=== PATIENT | female | born 2000 | race American Indian/Alaskan Native ===

== ENCOUNTER 2021-02-13 20:06 | Inpatient (IN) | payer MEDICAID ==
[2021-02-13] MEDS ORDERED: TERBUTALINE 1 MG/1 ML INJ SUB-Q PRN (20:42)
[2021-02-13] MEDS ORDERED: miSOPROStol 200 MCG TAB PR PRN (20:42)
[2021-02-13 21:38] LABS: Hematocrit 28.2 % (30.3-42.9); Mean Corpuscular HGB Conc 36 % (30-34); Mean Corpuscular Volume 84 fl (79-97); Platelet Count 226 K/mm3 (140-440); Red Blood Count 3.35 M/mm3 (3.65-5.03); Red Cell Distribution Width 15.4 % (13.2-15.2)
--- NOTE | 2021-02-13 21:55 | History and Physical Report ---
History of Present Illness Date of examination: 02/13/21 Date of admission: 02/13/21 20:06 Chief complaint: I am here to be induced History of present illness: Patient is a 21-year-old 1 para 0 who presents for induction of labor at 40 weeks and 3 days secondary to obesity and postdates. She has had an uncomplicated course. She is GBS positive Past History Past Medical History: no pertinent history Past Surgical History: no surgical history Family/Genetic History: none Social history: single - Obstetrical History Expected Date of Delivery: 02/09/21 Actual Gestation: 40 Week(s) 5 Day(s) : 1 Para: 0 Number of Living Children: 0 Medications and Allergies Allergies Allergy/AdvReac Type Severity Reaction Status Date / Time No Known Allergies Allergy Unverified 02/13/21 20:33 Active Meds: Active Medications Butorphanol Tartrate (Butorphanol 2 Mg/1 Ml Inj) 2 mg IV Q2H PRN PRN Reason: Pain , Severe (7-10) Carboprost Tromethamine (Carboprost Tromethamine 250 Mcg/1 Ml Inj) 250 mcg IM ONCE PRN PRN Reason: Uterine Bleeding Ephedrine Sulfate (Ephedrine Sulfate 50 Mg/1 Ml Inj) 10 mg IV Q2M PRN PRN Reason: Hypotension Fentanyl (Fentanyl 100 Mcg/2 Ml Inj) 100 mcg IV Q2H PRN PRN Reason: Pain, Moderate (4-6) Oxytocin/Sodium Chloride (Pitocin/Ns 30 Unit/500ml) 30 units in 500 mls @ 2 mls/hr IV TITR TAZ; Protocol Lactated Ringer's (Lactated Ringers) 1,000 mls @ 125 mls/hr IV DIRECT TAZ Oxytocin/Sodium Chloride (Pitocin/Ns 30 Unit/500ml) 30 units in 500 mls @ 40 mls/hr IV TITR TAZ; Protocol Ampicillin Sodium (Ampicillin/Ns 2 Gm/100 Ml) 2 gm in 100 mls @ 100 mls/hr IV ONCE ONE; Protocol Stop: 02/13/21 22:59 Lidocaine (Lidocaine (2%) 20 Mg/1 Ml Vial 20 Ml Mdv) 20 ml INFILTRATI ONCE ONE Stop: 02/13/21 22:01 Loperamide HCl (Loperamide 2 Mg Cap) 2 mg PO ONCE PRN PRN Reason: give with Hemabate Methylergonovine Maleate (Methylergonovine Maleate 0.2 Mg/Ml Vial) 0.2 mg IM ONCE PRN PRN Reason: Uterine Bleeding Mineral Oil (Mineral Oil 30 Ml Oral Liqd) 30 ml PO QHS PRN PRN Reason: Constipation Misoprostol (Misoprostol 200 Mcg Tab) 800 mcg DC ONCE PRN PRN Reason: Uterine Bleeding Misoprostol (Misoprostol 25 Mcg Tab) 25 mcg VG Q4H TAZ Oxytocin (Oxytocin 10 Unit/1 Ml Inj) 10 unit IM ONCE PRN PRN Reason: Uterine Bleeding Terbutaline Sulfate (Terbutaline 1 Mg/1 Ml Inj) 0.25 mg SUB-Q ONCE PRN PRN Reason: Hyperstimulation/Hypertonicity Review of Systems All systems: negative Constitutional: weight gain Eyes: deferred Breasts: deferred Genitourinary: pelvic pain, contractions - Physical Exam Breasts: Positive: deferred Cardiovascular: Regular rate, Normal S1, Normal S2 Lungs: Positive: Clear to auscultation, Normal air movement Abdomen: Positive: normal appearance, soft, normal bowel sounds. Negative: distention, tenderness Genitourinary (Female): Positive: normal external genitalia, normal perenium Vulva: both: normal Vagina: Positive: normal moisture. Negative: discharge Cervix: Negative: lesion, discharge Uterus: Positive: normal size, normal contour Adnexa: both: normal Anus/Rectum: Positive: normal perianal skin, heme negative. Negative: rectal mass, hemorrhoids Extremities: Deep Tendon Reflex Grade: Normal +2 - Obstetrical FHR: auscultation normal Cervical Dilatation: 1.5 Uterine Contraction Pattern: Absent Results Result Diagrams: 02/13/21 21:21 Abnormal lab results 02/13/21 Range/Units 21:21 RBC 3.35 L (3.65-5.03) M/mm3 Hgb 10.0 L (10.1-14.3) gm/dl Hct 28.2 L (30.3-42.9) % MCHC 36 H (30-34) % RDW 15.4 H (13.2-15.2) % All other labs normal. Assessment and Plan IUP at 40-4/7 weeks here for induction of labor secondary to postdates and obesity. Will admit for same. Begin Cytotec. AROM when able. Anticipate .
[2021-02-13] MEDS ORDERED: LOPERAMIDE 2 MG CAP PO PRN (22:00)
[2021-02-13] MEDS ORDERED: BUTORPHANOL 2 MG/1 ML INJ IV PRN (22:00)
[2021-02-13] MEDS ORDERED: MINERAL OIL 30 ML ORAL LIQD PO PRN (22:00)
[2021-02-13] MEDS ORDERED: LIDOCAINE (2%) 20 MG/1 ML VIAL 20 ML MDV INFILTRATI ONE (22:00)
[2021-02-13] MEDS ORDERED: AMPICILLIN/NS 2 GM/100 ML 2 GM/100 ML BAG IV ONE (22:00)
[2021-02-13] MEDS ORDERED: METHYLERGONOVINE MALEATE 0.2 MG/ML VIAL IM PRN (22:00)
[2021-02-13] MEDS ORDERED: OXYTOCIN 10 UNIT/1 ML INJ IM PRN (22:00)
[2021-02-13] MEDS ORDERED: miSOPROStol 25 MCG TAB VG SCH (22:00)
[2021-02-13] MEDS ORDERED: OXYTOCIN DRIP 30 UNITS/500 ML BAG IV SCH ×2 (22:00)
[2021-02-13] MEDS ORDERED: miSOPROStol 25 MCG TAB VG ONE (22:00)
[2021-02-13] MEDS ORDERED: CARBOPROST TROMETHAMINE 250 MCG/1 ML INJ IM PRN (22:00)
[2021-02-13] MEDS ORDERED: ePHEDrine SULFATE 50 MG/1 ML INJ IV PRN (22:00)
[2021-02-13] MEDS: LACTATED RINGERS 1,000 ML IV SCH (23:17)
[2021-02-14] MEDS: fentaNYL 100 MCG/2 ML INJ IV PRN ×2 (05:56→08:30)
[2021-02-14] MEDS ORDERED: ONDANSETRON 4 MG/2 ML INJ ONE (08:08)
--- NOTE | 2021-02-14 10:31 | Anesthesia Consultation ---
Anesthesia Consult and Med Hx Date of service: 02/14/21 - Airway Anesthetic Teeth Evaluation: Poor ROM Head & Neck: Adequate Mental/Hyoid Distance: Adequate Mallampati Class: Class II Intubation Access Assessment: Good - Pulmonary Exam CTA: Yes - Cardiac Exam Cardiac Exam: RRR - Pre-Operative Health Status ASA Pre-Surgery Classification: ASA3 Proposed Anesthetic Plan: Epidural - Pulmonary Hx Smoking: No Hx Asthma: No Hx Respiratory Symptoms: No SOB: No COPD: No Home Oxygen Therapy: No Hx Pneumonia: No Hx Sleep Apnea: No - Cardiovascular System Hx Hypertension: No Hx Coronary Artery Disease: No Hx Heart Attack/AMI: No Hx Angina: No Hx Percutaneous Transluminal Coronary Angioplasty (PTCA): No Hx Cardia Arrhythmia: No Hx Pacemaker: No Hx Internal Defibrillator: No Hx Valvular Heart Disease: No Hx Heart Murmur: No Hx Peripheral Vascular Disease: No - Central Nervous System Hx Neuromuscular Disorder: No Hx Seizures: No CVA: No Hx Back Pain: Yes Hx Psychiatric Problems: No - Gastrointestinal Hx Ulcer: No Hx Gastroesophageal Reflux Disease: No - Endocrine Hx Renal Disease: No Hx End Stage Renal Disease: No Hx Cirrhosis: No Hx Liver Disease: No Hx Insulin Dependent Diabetes: No Hx Non-Insulin Dependent Diabetes: No Hx Thyroid Disease: No Hx Hypothyroidism: No Hx Hyperthyroidism: No - Hematic Hx Anemia: No Hx Sickle Cell Disease: No - Other Systems Hx Alcohol Use: No Hx Substance Use: No Hx Cancer: No Hx Obesity: Yes
[2021-02-14] MEDS ORDERED: ePHEDrine SULFATE 50 MG/1 ML INJ IV PRN (11:00)
[2021-02-14] MEDS ORDERED: NALOXONE 2 MG/2 ML INJ IV PRN (11:00)
[2021-02-14] MEDS: fentaNYL-BUPIV 2 MCG/ML-0.125% 200 MCG/100 ML BAG EPIDURAL SCH ×2 (11:58→20:05)
[2021-02-14] MEDS: AMPICILLIN/NS 1 GM/50 ML 1 GM/50 ML BAG IV SCH ×2 (12:05→22:04)
--- NOTE | 2021-02-14 12:56 | Progress Note ---
Labor Epidural - Labor Epidural Start Time: 11:28 Stop Time: 11:43 Performed by:: NAOMI WHITE Procedure: Patient is requesting a laboring epidural for laboring pain. Patient IDed, H&P reviewed, all questions and concerns were answered, and consent was signed. Timeout was performed at bedside. Patient in sitting position. Sterile prep and drape was performed. [3] ml of 1% lidocaine skin wheal at L[3]- L [4]. 18- gauge StayNTouch epidural needle was advanced to loss of resistance with saline technique 9cm. Negative CSF negative blood. Epidural catheter advanced to [12] centimeters. [NEGATIVE] Aspiration [NEGATIVE] test dose. Sterile dressing applied. Patient tolerated procedure.
[2021-02-15] MEDS: LACTATED RINGERS 1,000 ML IV SCH ×3 (01:23→15:40)
[2021-02-15] MEDS: fentaNYL-BUPIV 2 MCG/ML-0.125% 200 MCG/100 ML BAG EPIDURAL SCH (02:26)
[2021-02-15] MEDS: AMPICILLIN/NS 1 GM/50 ML 1 GM/50 ML BAG IV SCH ×2 (02:35→07:34)
--- NOTE | 2021-02-15 10:30 | Procedure Note ---
OB Delivery Note - Delivery Date of Delivery: 02/15/21 Surgeon: GARETT BRANDT Estimated blood loss: 200cc - Vaginal Delivery presentation: vertex Delivery position: OA Intrapartum events: none Delivery induction: cervidil Delivery augmentation: rupture of membranes, pitocin Delivery monitor: external FHT, external uterine Route of delivery: Delivery placenta: spontaneous Delivery cord: 3 umbilical vessels Episiotomy: none Delivery laceration: 2nd degree Delivery repair: vicryl Anesthesia: epidural Delivery comments: Viable male delivered over intact perineum. Infant had spontaneous cry and was placed on maternal abdomen. Cord was clamped and cut when finished pulsating. Weight 7 pounds 14 ounces. Apgars 8/9. Placenta was delivered spontaneously and intact with three-vessel cord. Patient had a second degree laceration that was repaired with 2-0 Vicryl. Excellent hemostasis. Patient tolerated procedure well. - Infant A at 1 minute: 8 at 5 minutes: 9 Gender: Male (7 pounds 14 ounces)
[2021-02-15] MEDS ORDERED: NalbUPHINE 10 MG/1 ML INJ IV PRN (12:30)
[2021-02-15] MEDS ORDERED: fentaNYL 100 MCG/2 ML INJ IV PRN (13:00)
[2021-02-15] MEDS: ACETAMINOPHEN 325 MG TAB PO PRN (13:47)
[2021-02-15 13:51] LABS: Hematocrit 28.3 % (30.3-42.9); Hemoglobin 9.8 gm/dl (10.1-14.3); Mean Corpuscular HGB Conc 35 % (30-34); Mean Corpuscular Volume 84 fl (79-97); Platelet Count 240 K/mm3 (140-440); Red Blood Count 3.37 M/mm3 (3.65-5.03); Red Cell Distribution Width 15.7 % (13.2-15.2)
[2021-02-15 14:06] LABS: Amorphous Crystals,Urine 1+; Bacteria,Urine 4+ /HPF (Negative); Bilirubin,Urine NEG (Negative); Blood,Urine LG (Negative); Color,Urine Yellow (Yellow); Mucus,Urine FEW /HPF; Urobilinogen,Urine < 2.0 mg/dL (<2.0)
[2021-02-15 14:12] LABS: Alanine Aminotransferase 20 units/L (7-56); Albumin 3.1 g/dL (3.9-5); BUN/Creatinine Ratio 15; Blood Urea Nitrogen 12 mg/dL (7-17); Calcium 8.8 mg/dL (8.4-10.2); Hemolysis Index 5
[2021-02-15] MEDS ORDERED: MAGNESIUM SULFATE 4 GM/100 ML BAG IV ONE (16:00)
[2021-02-15] MEDS ORDERED: MAGNESIUM SULFATE 40GM/1000ML 40 GM/1,000 ML BAG IV SCH (16:00)
[2021-02-15] MEDS ORDERED: MINERAL OIL 30 ML ORAL LIQD PO PRN (22:00)
--- NOTE | 2021-02-15 22:32 | Post Anesthesia Evaluation ---
- Post Anesthesia Evaluation Patient Participated: Yes Airway Patent: Yes Stable Respiratory Function: Yes Nausea/Vomiting: No Temp > 96.8F: Yes Pain Manageable: Yes Adequeate Hydration: Yes Anesthesia Complications: No Block Receding Appropriately: Yes Patient on Ventilator: No
[2021-02-15] MEDS ORDERED: WITCH HAZEL/ GLYCERIN PAD TP PRN (23:06)
[2021-02-15] MEDS ORDERED: MAGNESIUM HYDROXIDE (MOM) ORAL LIQD UDC PO PRN (23:06)
[2021-02-15] MEDS ORDERED: diphenhydrAMINE 25 MG CAP PO PRN (23:06)
[2021-02-15] MEDS ORDERED: LANOLIN/ZINC/DIMETHICONE (LANSINOH) 7 GM TP PRN (23:06)
[2021-02-15] MEDS ORDERED: PROMETHAZINE 25 MG TAB PO PRN (23:06)
[2021-02-15] MEDS ORDERED: ONDANSETRON 4 MG/2 ML INJ IV PRN (23:06)
[2021-02-15] MEDS ORDERED: HYDROcodone/ACETAMINOPHEN 5-325 MG TAB PO PRN (23:06)
[2021-02-15] MEDS ORDERED: PROMETHAZINE 25 MG RECT SUPP PR PRN (23:06)
[2021-02-15 23:54] LABS: Hematocrit 26.8 % (30.3-42.9); Hemoglobin 9.2 gm/dl (10.1-14.3)
[2021-02-16] MEDS: LACTATED RINGERS 1,000 ML IV SCH (06:58)
[2021-02-16] MEDS ORDERED: PRENATAL VIT27-FE FUMARATE-FOLIC ACID VIT TAB PO SCH (10:00)
--- NOTE | 2021-02-16 13:54 | Progress Note ---
Assessment and Plan - Patient Problems (1) Status post normal vaginal delivery Current Visit: Yes Status: Acute Plan to address problem: Continue routine PP orders Continue Magnesium drip as ordered Continue to monitor B/Ps Transfer to M/B after Magnesium complete Anticipate d/c in 24-48 hrs (2) Anemia Current Visit: Yes Status: Acute Qualifiers: Anemia type: iron deficiency Plan to address problem: Asymptomatic Increase iron rich foods into diet Continue daily oral iron supplementation as ordered Subjective - Subjective Date of service: 02/16/21 Principal diagnosis: S/P ; PPD#1; PIH Interval history: Patient is a 21-year-old 1 para 0 who presents for induction of labor at 40 weeks and 3 days secondary to obesity and postdates. She has had an uncomplicated course. She is GBS positive. Delivered viable male infant. Magniesum drip initiated. Patient reports: appetite normal, voiding normally, pain well controlled, flatus, ambulating normally : doing well, bottle feeding Objective - Vital Signs Latest vital signs: Vital Signs Temp Pulse Resp BP Pulse Ox Pulse Ox 02/16/21 13:48 91 H 99 02/16/21 13:43 82 100 02/16/21 13:38 102 H 99 02/16/21 13:33 98 H 99 02/16/21 13:28 91 H 99 02/16/21 13:23 93 H 99 02/16/21 13:18 107 H 99 02/16/21 13:15 90 130/61 02/16/21 13:13 89 84 02/16/21 13:10 33 L 84 02/16/21 12:59 83 99 02/16/21 12:54 87 98 02/16/21 12:49 89 99 02/16/21 12:44 91 H 99 02/16/21 12:39 98 H 98 02/16/21 12:34 93 H 99 02/16/21 12:29 83 98 02/16/21 12:24 85 98 02/16/21 12:19 85 98 02/16/21 12:14 91 H 98 02/16/21 12:09 93 H 98 02/16/21 12:04 95 H 98 02/16/21 12:02 91 H 94 02/16/21 12:00 98.2 F 18 98 02/16/21 11:59 96 H 97 02/16/21 11:54 92 H 98 02/16/21 11:49 106 H 97 02/16/21 11:44 103 H 99 02/16/21 11:39 58 L 89 02/16/21 11:18 96 H 97 02/16/21 11:13 97 H 97 02/16/21 11:08 95 H 97 02/16/21 11:03 97 H 97 02/16/21 10:58 96 H 97 02/16/21 10:53 96 H 98 02/16/21 10:48 97 H 98 02/16/21 10:43 94 H 97 02/16/21 10:38 94 H 98 02/16/21 10:33 104 H 97 02/16/21 10:28 95 H 97 02/16/21 10:23 98 H 97 02/16/21 10:18 107 H 99 02/16/21 10:13 94 H 97 02/16/21 10:08 94 H 97 02/16/21 10:03 108 H 98 02/16/21 10:00 98 02/16/21 09:58 101 H 94 02/16/21 09:53 103 H 97 02/16/21 09:50 93 H 91 02/16/21 09:48 99 H 97 02/16/21 09:43 96 H 98 02/16/21 09:38 103 H 98 02/16/21 09:33 108 H 98 02/16/21 09:22 100 H 99 02/16/21 09:17 94 H 99 02/16/21 09:12 102 H 99 02/16/21 09:07 90 99 02/16/21 09:02 94 H 99 02/16/21 08:57 101 H 99 02/16/21 08:52 93 H 99 02/16/21 08:47 88 98 02/16/21 08:42 93 H 98 02/16/21 08:37 98 H 99 02/16/21 08:32 92 H 99 02/16/21 08:27 108 H 99 02/16/21 08:22 118 H 98 02/16/21 08:17 93 H 99 02/16/21 08:12 91 H 99 02/16/21 08:07 97 H 99 02/16/21 08:02 90 99 02/16/21 07:57 94 H 99 02/16/21 07:52 103 H 99 02/16/21 07:47 92 H 98 02/16/21 07:42 103 H 98 02/16/21 07:27 100 100 02/16/21 07:24 98.1 F 18 02/16/21 07:02 91 H 132/76 100 02/16/21 06:57 102 H 99 02/16/21 06:53 101 H 140/82 02/16/21 06:52 107 H 99 02/16/21 06:47 95 H 98 02/16/21 06:42 106 H 97 02/16/21 06:37 96 H 98 02/16/21 06:32 95 H 98 02/16/21 06:27 97 H 98 02/16/21 06:22 95 H 98 02/16/21 06:17 95 H 98 02/16/21 06:12 93 H 98 02/16/21 06:07 94 H 98 02/16/21 06:02 94 H 98 02/16/21 05:57 95 H 99 02/16/21 05:54 92 H 123/67 02/16/21 05:52 97 H 98 02/16/21 05:47 97 H 98 02/16/21 05:42 96 H 98 02/16/21 05:37 92 H 99 02/16/21 05:32 95 H 99 02/16/21 05:27 93 H 99 02/16/21 05:22 103 H 98 02/16/21 05:17 103 H 99 02/16/21 05:12 116 H 98 02/16/21 05:07 118 H 98 02/16/21 05:02 112 H 98 02/16/21 05:00 113 H 93 02/16/21 04:57 102 H 98 02/16/21 04:52 100 H 98 02/16/21 04:47 103 H 98 02/16/21 04:42 102 H 98 02/16/21 04:37 102 H 98 02/16/21 04:32 102 H 98 02/16/21 04:27 103 H 98 02/16/21 04:22 102 H 98 02/16/21 04:17 99 H 98 02/16/21 04:12 102 H 98 02/16/21 04:07 98 H 99 02/16/21 04:04 99 H 137/74 02/16/21 04:02 101 H 98 02/16/21 03:57 99 H 98 02/16/21 03:52 103 H 99 02/16/21 03:47 105 H 99 02/16/21 03:42 119 H 97 02/16/21 03:41 62 82 L 02/16/21 03:32 125 H 76 L 02/16/21 03:30 121 H 91 02/16/21 03:27 111 H 97 02/16/21 03:22 105 H 99 02/16/21 03:17 106 H 99 02/16/21 03:12 105 H 99 02/16/21 03:07 105 H 99 02/16/21 03:02 102 H 99 02/16/21 02:57 107 H 99 02/16/21 02:52 104 H 100 02/16/21 02:47 104 H 99 02/16/21 02:44 98.2 F 17 02/16/21 02:42 102 H 100 02/16/21 02:41 106 H 124/72 02/16/21 02:37 111 H 99 02/16/21 02:32 107 H 98 02/16/21 02:27 107 H 99 02/16/21 02:22 107 H 99 02/16/21 02:17 104 H 99 02/16/21 02:12 103 H 99 02/16/21 02:07 102 H 98 02/16/21 02:02 103 H 99 02/16/21 01:57 97 H 100 02/16/21 01:52 104 H 100 02/16/21 01:47 119 H 99 02/16/21 01:42 114 H 100 02/16/21 01:39 87 80 L 02/16/21 01:37 99 H 100 02/16/21 01:32 103 H 100 02/16/21 01:27 110 H 100 02/16/21 01:22 119 H 99 02/16/21 01:21 64 81 L 02/16/21 01:17 108 H 100 02/16/21 01:12 113 H 99 02/16/21 01:10 105 H 131/63 02/16/21 01:07 108 H 100 02/16/21 01:02 103 H 100 02/16/21 00:57 108 H 100 02/16/21 00:52 129 H 99 02/16/21 00:49 81 L 02/16/21 00:40 72 79 L 02/16/21 00:35 102 H 100 02/16/21 00:30 101 H 100 02/16/21 00:25 108 H 99 02/16/21 00:20 104 H 100 02/16/21 00:15 96 H 100 02/16/21 00:10 112 H 100 02/16/21 00:05 121 H 100 02/15/21 23:54 99 H 100 02/15/21 23:49 105 H 100 02/15/21 23:44 105 H 100 02/15/21 23:40 102 H 135/63 02/15/21 23:39 103 H 100 02/15/21 23:38 98.3 F 02/15/21 23:34 101 H 100 02/15/21 23:29 108 H 98 02/15/21 23:24 108 H 100 02/15/21 23:19 104 H 100 02/15/21 23:14 99 H 100 02/15/21 23:09 102 H 100 02/15/21 23:04 106 H 100 02/15/21 22:59 103 H 99 02/15/21 22:54 124 H 100 02/15/21 22:49 85 87 02/15/21 22:40 105 H 99 02/15/21 22:35 103 H 99 02/15/21 22:30 109 H 99 02/15/21 22:16 99 F 17 02/15/21 22:15 109 H 100 02/15/21 22:10 99 H 100 02/15/21 22:05 103 H 100 02/15/21 22:00 101 H 100 02/15/21 21:55 112 H 100 02/15/21 21:50 98 H 100 02/15/21 21:45 97 H 100 02/15/21 21:40 105 H 100 02/15/21 21:35 105 H 100 02/15/21 21:32 102 H 136/72 02/15/21 21:30 104 H 100 02/15/21 21:25 101 H 100 02/15/21 21:20 122 H 99 02/15/21 21:07 120 H 100 02/15/21 21:02 108 H 100 02/15/21 20:57 98 H 100 02/15/21 20:52 99 H 100 02/15/21 20:47 96 H 100 02/15/21 20:42 108 H 100 02/15/21 20:37 93 H 100 02/15/21 20:36 94 H 137/64 02/15/21 20:32 97 H 100 02/15/21 20:27 99 H 100 02/15/21 20:22 106 H 99 02/15/21 20:17 70 97 02/15/21 20:07 109 H 100 02/15/21 20:02 109 H 100 02/15/21 19:57 106 H 100 02/15/21 19:52 103 H 99 02/15/21 19:47 100 H 100 02/15/21 19:42 96 H 100 02/15/21 19:37 91 H 100 02/15/21 19:32 99 H 138/73 100 02/15/21 19:27 102 H 100 02/15/21 19:22 98.3 F 95 H 100 H 100 02/15/21 19:19 100 02/15/21 19:17 98 H 134/68 100 02/15/21 19:12 92 H 100 02/15/21 19:07 123 H 100 02/15/21 18:58 98.7 F 114 H 16 100 02/15/21 18:56 92 H 100 02/15/21 18:51 112 H 99 02/15/21 18:46 96 H 100 02/15/21 18:41 97 H 100 02/15/21 18:36 95 H 100 02/15/21 18:32 98 H 132/64 02/15/21 18:31 88 100 02/15/21 18:26 96 H 100 02/15/21 18:21 99 H 100 02/15/21 18:16 108 H 100 02/15/21 18:11 114 H 100 02/15/21 18:06 102 H 100 02/15/21 18:01 97 H 100 02/15/21 17:56 102 H 100 02/15/21 17:55 99.4 F 16 98 02/15/21 17:51 99 H 100 02/15/21 17:46 103 H 100 02/15/21 17:41 102 H 100 02/15/21 17:36 98 H 100 02/15/21 17:31 106 H 100 02/15/21 17:09 94 H 156/79 02/15/21 16:59 99 H 155/74 02/15/21 16:55 99.2 F 100 H 16 100 02/15/21 16:49 88 150/72 02/15/21 16:39 101 H 146/74 02/15/21 16:29 96 H 144/64 02/15/21 16:19 95 H 140/69 02/15/21 16:09 97 H 136/69 02/15/21 15:59 98 H 139/68 02/15/21 15:50 98.1 F 102 H 132/64 02/15/21 15:14 123 H 145/65 02/15/21 14:44 111 H 145/65 02/15/21 13:59 103 H 161/80 Intake and Output 02/15/21 02/16/21 02/16/21 23:59 07:59 15:59 Intake Total 1000 Output Total 1350 1200 300 Balance -1350 -200 -300 Intake: IV 1000 Lactated Ringers 1,000 ml 1000 @ 125 mls/hr IV DIRECT TAZ Rx#:[id number] Output: Urine 1350 1200 300 Void 1350 1200 300 Other: Total, Output Amount 400 200 300 # Voids Void 1 1 1 - Exam Breasts: Present: normal Cardiovascular: Present: Regular rate Lungs: Present: Normal air movement Abdomen: Present: soft Uterus: Present: firm, fundal height below umbilicus (U-2) Extremities: Present: edema Deep Tendon Reflex Grade: Normal +2 - Labs Labs: Abnormal lab results 02/15/21 02/15/21 02/15/21 Range/Units 13:46 13:46 23:36 Hgb 9.2 L (10.1-14.3) gm/dl Hct 26.8 L (30.3-42.9) % Sodium 135 L (137-145) mmol/L Carbon Dioxide 17 L (22-30) mmol/L Glucose 139 H (65-100) mg/dL Magnesium (1.7-2.3) mg/dL Alkaline Phosphatase 192 H (35-129) units/L Albumin 3.1 L (3.9-5) g/dL Urine WBC (Auto) 113.0 H (0.0-6.0) /HPF 02/16/21 02/16/21 Range/Units 08:36 12:16 Hgb (10.1-14.3) gm/dl Hct (30.3-42.9) % Sodium (137-145) mmol/L Carbon Dioxide (22-30) mmol/L Glucose (65-100) mg/dL Magnesium 5.20 H 5.10 H (1.7-2.3) mg/dL Alkaline Phosphatase (35-129) units/L Albumin (3.9-5) g/dL Urine WBC (Auto) (0.0-6.0) /HPF
[2021-02-16] MEDS: FERROUS SULFATE 325 MG TAB PO SCH ×2 (14:27→23:21)
[2021-02-16] MEDS: ACETAMINOPHEN 325 MG TAB PO PRN (14:27)
[2021-02-16] MEDS: IBUPROFEN 600 MG TAB PO SCH ×2 (17:44→23:22)
[2021-02-17] MEDS: IBUPROFEN 600 MG TAB PO SCH ×2 (05:36→12:52)
--- NOTE | 2021-02-17 07:52 | Discharge Summary ---
Providers - Providers Date of Admission: 02/13/21 20:06 Date of discharge: 02/17/21 Attending physician: GARETT BRANDT Primary care physician: GARETT BRANDT Hospitalization Reason for admission: induction of labor Delivery: Episiotomy: none Laceration: none Other procedures: none complications: none Discharge diagnosis: IUP at term delivered baby: male Hospital course: Patient is a 21-year-old 1 para 0 who presents for induction of labor at 40 weeks and 3 days secondary to obesity and postdates. She has had an uncomplicated course. She is GBS positive. Delivered viable male . Condition at discharge: Good Disposition: HOME / SELF CARE / HOMELESS - Discharge Diagnoses (1) Status post normal vaginal delivery Status: Acute (2) Anemia Status: Acute Qualifiers: Anemia type: iron deficiency Comment: Asymptomatic Increase iron rich foods into diet Continue daily oral iron supplementation as directed Plan - Discharge Medications Prescriptions: Ferrous Sulfate [Feosol 325 MG tab] 325 mg PO BID 30 Days #60 tablet Ibuprofen [Motrin 600 MG tab] 800 mg PO Q8H 7 Days #21 tablet - Provider Discharge Summary Activity: routine, no sex for 6 weeks, no heavy lifting 4 weeks, no strenuous exercise Diet: routine (Iron rich diet) Instructions: routine Additional instructions: [] Smoking cessation referral if applicable(refer to patient education folder for contact #) [] Refer to [facility] Booklet Call your doctor immediately for: * Fever > 100.5 * Heavy vaginal bleeding ( >1 pad per hour) * Severe persistent headache * Shortness of breath * Reddened, hot, painful area to leg or breast - Follow up plan Follow up: GARETT BRANDT MD [Primary Care Provider] - 6 Weeks
[2021-02-17] MEDS: FERROUS SULFATE 325 MG TAB PO SCH (10:48)
[2021-02-17 17:52] VITALS: BP 132/61
== END 2021-02-17 16:00 | disposition home or self-care (01) | DRG 775 ==
LOC: LD 20:06 → OB 02-16 17:35
PROVIDERS: ADMIT Obstetrics & Gynecology; ATTEND Obstetrics & Gynecology
PROC: 10E0XZZ Delivery of Products of Conception, External Approach (ICD-10-PCS; principal; 2021-02-15)
PROC: 3E0R3BZ Introduction of Anesthetic Agent into Spinal Canal, Percutaneous Approach (ICD-10-PCS; 2021-02-15)
PROC: 00HU33Z Insertion of Infusion Device into Spinal Canal, Percutaneous Approach (ICD-10-PCS; 2021-02-15)
PROC: 0KQM0ZZ Repair Perineum Muscle, Open Approach (ICD-10-PCS; 2021-02-15)
DX: O99.824 Streptococcus B carrier state complicating childbirth (principal); Z3A.40 40 weeks gestation of pregnancy; Z37.0 Single live birth; O48.0 Post-term pregnancy; O99.214 Obesity complicating childbirth; E66.9 Obesity, unspecified; O90.81 Anemia of the puerperium; D50.9 Iron deficiency anemia, unspecified; Z20.822 Contact with and (suspected) exposure to COVID-19; O70.1 Second degree perineal laceration during delivery
CPT/HCPCS: 36415; 59200; 80053; 81001; 83735; 85014; 85018; 85027; 86850; 86900; 86901; G0378; A6250; J0290; J2405; J2590; J3010; J3475; J7120; U0003